=== PATIENT | female | born 1990 ===

== ENCOUNTER 2021-01-28 08:22 | Emergency (ER) | payer OTHER ==
[2021-01-28] MEDS ORDERED: Dexamethasone 10 MG/ML SDV IM STA (08:53)
[2021-01-28] MEDS ORDERED: Ketorolac 30 MG/ML SDV IM STA (08:53)
[2021-01-28] MEDS ORDERED: Acetaminophen 500 MG Tab PO ONE (08:54)
--- NOTE | 2021-01-28 09:03 | EDM.PDOC ---
ED HPI GENERAL MEDICAL PROBLEM - General Chief Complaint: Neck Problem Stated Complaint: NECK PAIN Time Seen by Provider: 01/28/21 08:22 Source of Information: Reports: Patient History Limitations: Reports: No Limitations - History of Present Illness INITIAL COMMENTS - FREE TEXT/NARRATIVE: 30-year-old female past medical history ankylosing spondylitis presents for atraumatic left-sided neck pain. Patient notes that she was camping over the weekend and 3 days ago developed left-sided neck pain. It was at its most severe 2 days ago and she was taking naproxen which gave her some relief. The pain is in her lateral posterior neck radiating down her arm. She does note some numbness and tingling sensation to the arm. No muscle weakness. Does give her a bit of a headache. She notes that she struggles with chronic back pain secondary to ankylosing spondylitis but typically this in her lower back. 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: Musculoskeletal History: Reports: None Neurological History: Reports: None Psychiatric History: Reports: None Endocrine/Metabolic History: Reports: None Hematologic History: Reports: None Immunologic History: Reports: None Oncologic (Cancer) History: Reports: None Dermatologic History: Reports: None - Infectious Disease History Infectious Disease History: Reports: None - Past Surgical History Head Surgeries/Procedures: Reports: None HEENT Surgical History: Reports: Tonsillectomy GI Surgical History: Reports: Cholecystectomy Social & Family History - Family History Family Medical History: No Pertinent Family History - Tobacco Use Tobacco Use Status *Q: Never Tobacco User Second Hand Smoke Exposure: No - Caffeine Use Caffeine Use: Reports: None - Recreational Drug Use Recreational Drug Use: No ED ROS GENERAL - Review of Systems Review Of Systems: Comprehensive ROS is negative, except as noted in HPI. 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) Neurological: Alert, Normal Cognition, Normal Gait Psychiatric: Normal Affect, Normal Mood Skin Exam: Warm, Dry, Intact, Normal Color Course - Vital Signs Last Recorded V/S: Last Vital Signs Temp 97.4 F 01/28/21 08:37 Pulse 78 01/28/21 08:37 Resp 18 01/28/21 08:37 BP 154/90 H 01/28/21 08:37 Pulse Ox 98 01/28/21 08:37 - Orders/Labs/Meds Meds: Medications Discontinued Medications Generic Name Dose Route Start Last Admin Trade Name Freq PRN Reason Stop Dose Admin Acetaminophen 1,000 mg 01/28/21 08:54 Acetaminophen 500 Mg Tab PO 01/28/21 08:55 ONETIME ONE Dexamethasone 10 mg 01/28/21 08:53 Dexamethasone 10 Mg/Ml Sdv IM 01/28/21 08:54 STAT STA Ketorolac Tromethamine 30 mg 01/28/21 08:53 Ketorolac 30 Mg/Ml Sdv IM 01/28/21 08:54 STAT STA - Re-Assessments/Exams Free Text/Narrative Re-Assessment/Exam: 01/28/21 09:01 We will give Toradol and Decadron for cervicalgia. Will discharge with muscle relaxant, prednisone, Motrin, Pepcid for GI prophylaxis. Spoke with patient at length about need for orthopedic follow-up as she may benefit from an MRI for further work-up and diagnostics. Patient understands and agrees with plan. Departure - Departure Time of Disposition: 09:02 Disposition: Home, Self-Care 01 Condition: Good Clinical Impression: Cervical radiculopathy - Discharge Information Prescriptions: Ibuprofen [Motrin] 600 mg PO Q6H PRN #20 tab PRN Reason: Pain Famotidine [Pepcid] 20 mg PO BEDTIME 7 Days #7 tab predniSONE 40 mg PO DAILY 5 Days #10 tab diazePAM [Valium] 5 mg PO TID PRN #9 tablet PRN Reason: Muscle Spasm - Painful Instructions: Cervical Radiculopathy Referrals: Jessica Mercado MD [Primary Care Provider] - Additional Instructions: I have placed you on our orthopedic follow-up list so that you can have further work-up and diagnostics. I prescribed multiple medications. I prescribed high- dose Motrin which is a nonsteroidal anti-inflammatory that can help with both pain and inflammation. Prescribed a 5-day course of prednisone which is a powerful steroid anti-inflammatory. I also prescribed a medication called Pepcid which is for stomach acid and can protect from ulcers and acid reflux in the setting of prednisone and Motrin use as both of these medications can cause increased stomach acid production. I also prescribed a medication called Valium which is often used as an antianxiety medication but in this case is being used as a muscle relaxant. Please do not drink or drive on this medication. [facility] [address], [address] [place] [address] The following information is given to patients seen in the emergency department who are being discharged to home. This information is to outline your options for follow-up care. We provide all patients seen in our emergency department with a follow-up referral. The need for follow-up, as well as the timing and circumstances, are variable depending upon the specifics of your emergency department visit. If you don't have a primary care physician on staff, we will provide you with a referral. We always advise you to contact your personal physician following an e mergency department visit to inform them of the circumstance of the visit and for follow-up with them and/or the need for any referrals to a consulting specialist. The emergency department will also refer you to a specialist when appropriate. This referral assures that you have the opportunity for follow-up care with a specialist. All of these measure are taken in an effort to provide you with op timal care, which includes your follow-up. Under all circumstances we always encourage you to contact your private physician who remains a resource for coordinating your care. When calling for follow-up care, please make the office aware that this follow-up is from your recent emergency room visit. If for any reason you are refused follow-up, please contact the [facility] Emergency Department at and asked to speak to the emergency department charge nurse. Please follow up with your primary care physician. If you do not have a primary care physician, see below: [facility] [address] [place] [id number] [facility] [address] [place] [address] [facility] [address] [place] [id number] Sepsis Event Note (ED) - Evaluation Sepsis Screening Result: No Definite Risk - Focused Exam Vital Signs: Vital Signs Temp Pulse Resp BP Pulse Ox 01/28/21 08:37 97.4 F 78 18 154/90 H 98
== END 2021-01-28 09:32 | disposition home or self-care (01) ==
LOC: MW.ED 08:22
DX: M54.12 Radiculopathy, cervical region (principal)
CPT/HCPCS: 96372; 99283; A9270; J1100; J1885

== ENCOUNTER 2024-06-06 13:25 | Emergency (ER) | payer BC, OTHER ==
[2024-06-06] MEDS ORDERED: Sodium Chloride 0.9% 2.5 ML Syringe FLUSH PRN (13:28)
[2024-06-06] MEDS ORDERED: Sodium Chloride 0.9% 10 ML Syringe FLUSH PRN (13:28)
[2024-06-06] MEDS: Iopamidol 755 MG/ML 500 ML Multipack Bottle IVPUSH STA (14:00)
[2024-06-06 14:13] LABS: BASOPHILS ABSOLUTE AUTO 0.05 K/uL (0.00-0.20); BASOPHILS PERCENT AUTO 0.6 % (0.0-1.0); EOSINOPHILS ABSOLUTE AUTO 0.22 K/uL (0.00-0.45); EOSINOPHILS PERCENT AUTO 2.6 % (0.0-6.0); HEMATOCRIT 41.4 % (37.0-47.0); HEMOGLOBIN 14.3 g/dL (12.0-16.0); IMMATURE GRAN ABSOLUTE AUTO 0.02 K/uL (0.00-0.05); IMMATURE GRAN PERCENT AUTO 0.2 % (0.0-0.4); LYMPHOCYTES PERCENT AUTO 25.9 % (24.0-44.0); MEAN CORPUSCULAR HEMOGLOBIN 28.7 pg (28.0-32.0); MEAN CORPUSCULAR HGB CONC 34.5 g/dL (32.0-36.0); MEAN CORPUSCULAR VOLUME 83.1 fL (83.0-99.0); MEAN PLATELET VOLUME 11.1 fL (9.4-12.3); MONOCYTES ABSOLUTE AUTO 0.59 K/uL (0.00-0.80); NEUTROPHILS PERCENT AUTO 63.7 % (41.0-71.0); PLATELET COUNT,PLT 213 K/uL (150-400); RED BLOOD CELL COUNT 4.98 M/uL (4.10-5.30); WHITE BLOOD CELL COUNT,WBC 8.48 K/uL (3.9-11.3)
[2024-06-06 14:41] LABS: A/G RATIO 1.4 (0.9-1.6); ALANINE AMINOTRANSFERASE,ALT 24 IU/L (14-63); ALBUMIN 3.8 g/dL (3.4-5.0); ALKALINE PHOSPHATASE 75 U/L (46-116); ASPARTATE AMNIOTRANSFERASE,AST 16 IU/L (15-37); BILIRUBIN TOTAL 0.5 mg/dL (0.2-1.0); BLOOD UREA NITROGEN,BUN 13 mg/dL (7.0-18.0); CALCIUM 8.5 mg/dL (8.5-10.1); CARBON DIOXIDE,CO2 21.2 mmol/L (21.0-32.0); CHLORIDE,CL 105 mmol/L (98-107); CREATININE 1.2 mg/dL (0.6-1.0); EST CRCL DRUG DOSING (CG) 68.38 mL/min; ETHANOL BLOOD MEDICAL <3 mg/dL; GLUCOSE RANDOM 93 mg/dL (74-106); POTASSIUM,K 3.5 mmol/L (3.5-5.1); PROTEIN TOTAL,TP 6.6 g/dL (6.4-8.2); SODIUM,NA 139 mmol/L (136-145)
[2024-06-06 14:54] LABS: ESTIMATED GFR 61 mL/min (>60)
[2024-06-06] MEDS: Diphtheria,Pertussis(Acell),Tetanus Vaccine 0.5 ML Syringe IM ONE (16:32)
== END 2024-06-06 17:05 | disposition home or self-care (01) ==
LOC: MW.ED 13:25
DX: S00.01XA Abrasion of scalp, initial encounter (principal); Z23 Encounter for immunization; Z79.899 Other long term (current) drug therapy; Z90.49 Acquired absence of other specified parts of digestive tract; V47.5XXA Car driver injured in collision with fixed or stationary object in traffic accident, initial encounter
CPT/HCPCS: 36415; 70450; 71275; 72125; 72128; 72131; 73562; 74177; 80053; 80307; 84703; 85025; 86850; 86900; 86901; 90471; 90715; 99285; Q9967